=== PATIENT | female | born 1985 | race Caucasian/White ===

== ENCOUNTER 2024-04-17 08:19 | Emergency (ER) | payer MEDICAID ==
[~2024-04-17] VITALS: Ht 162.6 cm; Wt 81.6 kg
[2024-04-17 08:28] VITALS: O2SAT 100
[2024-04-17] MEDS: ACETAMINOPHEN 325MG TABLET PO ONE (08:58)
[2024-04-17] MEDS ORDERED: ACET-2708 MT (09:27)
[2024-04-17 09:34] VITALS: BP 120/80; PULSE 70; RESP 16; TEMP 98.2
== END 2024-04-17 09:37 | disposition home or self-care (01) ==
LOC: ER 08:37
DX: S62.631A Displaced fracture of distal phalanx of left index finger, initial encounter for closed fracture (principal); Z98.890 Other specified postprocedural states; X58.XXXA Exposure to other specified factors, initial encounter; Y93.89 Activity, other specified; Y92.89 Other specified places as the place of occurrence of the external cause; Y99.8 Other external cause status
CPT/HCPCS: 29130; 73120; 99283